=== PATIENT | male | born 1985 | race Caucasian/White ===

== ENCOUNTER 2024-02-20 08:01 | Emergency (ER) | payer OTHER, SELFPAY ==
[2024-02-20 08:13] VITALS: BP 134/85; PULSE 76; RESP 18; TEMP 36.7; O2SAT 99
--- NOTE | 2024-02-20 08:21 | XR_ITS ---
WS: [id number] XR hip RT 2-3V wo/w pel* [id number] REASON FOR EXAM: hip pain FINDINGS: No fracture or focal bone lesion. Mild narrowing of the posterior inferior and superior anterior joint space with mild subchondral scle rosis and osteophytosis of the acetabulum. No significant abnormality of the femoral head or neck. XR/XR hip RT 2-3V wo/w pel* [id number] IMPRESSION: No acute abnormality. Mild osteoarthritis.
--- NOTE | 2024-02-20 08:24 | W.ED.EXTPRO ---
HPI - Extremity Problem General: Chief complaint: Extremity Problem,Nontraumatic Stated complaint: Right hip pain to groin Time Seen by Provider: 02/20/24 08:21 History of Present Illness: 39-year-old male presents emergency room with complaining of right hip pain into the groin. Goes around his from the buttock into the groin and down the lateral part of his thigh on the right leg. He said problems like this in the past is worse when he is ambulating he is down here from [facility] visiting family and he has been out [place] walking in the [place] sitting a lot and deer stand. He has no difficulty with bowel or bladder function. No direct recent trauma he does have a service related injury with some compression fractures after being exposed to an IUD while he was serving in the [employer]. This did not require surgery. Associated symptoms: Deny chest pain, fever(s) or rash Related Data Home Medications Medication Instructions Recorded Confirmed naproxen sodium 220 mg tablet 220 mg PO DAILY PRN Pain 02/20/24 02/20/24 (Yahaira) Previous Rx's Medication Instructions Recorded diclofenac sodium 75 mg 75 mg PO Q12H PRN pain #20 tabs 02/20/24 tablet,delayed release hydrocodone 5 mg-acetaminophen 325 1 tab PO Q6H PRN pain #15 tabs 02/20/24 mg tablet prednisone 20 mg tablet 20 mg PO TID #15 tabs 02/20/24 tizanidine 4 mg tablet 4 mg PO Q6H PRN muscle spasticity 02/20/24 #20 tabs Allergies Allergy/AdvReac Type Severity Reaction Status Date / Time No Known Allergies Allergy Verified 02/20/24 08:17 Review of Systems Const: Denies: fever(s) or chills Card: Denies: chest pain Resp: Denies: dyspnea GI: Denies: abdominal pain : Denies: dysuria, urinary frequency or urinary urgency Musc: Reports: back pain; Denies: neck pain Skin/Breast: Denies: rash Physical Exam Const: COMMON NORMALS: no acute distress GENERAL APPEARANCE: cooperative and comfortable ORIENTATION/CONSCIOUSNESS: Yes awake, Yes oriented to person, Yes oriented to place and Yes oriented to time HENMT: COMMON NORMALS: normocephalic, atraumatic and hearing grossly normal bilaterally HEAD & SCALP: normocephalic and atraumatic Resp: COMMON NORMALS: normal respiratory effort, No retractions, No use of accessory muscles and clear to auscultation bilaterally AUSCULTATION: clear to auscultation bilaterally Cardio: COMMON NORMALS: regular rate, regular rhythm and No murmurs present (Cardio) RATE: regular rate RHYTHM: regular rhythm GI: COMMON NORMALS: Soft to palpation and No hepatosplenomegaly present AUSCULTATION: Yes normoactive bowel sounds PALPATION: Yes Soft to palpation, No Tenderness to palpation present (GI), No Guarding due to palpation present (GI) and Yes No hepatosplenomegaly present Extremity: COMMON NORMALS: normal to inspection, capillary refill normal, no clubbing, cyanosis or edema, no calf tenderness and no pedal edema Neuro: SENSORIUM/ORIENTATION: Yes oriented to person, Yes oriented to place and Yes oriented to time OTHER: Deep tendon reflexes +24 in the patellar tendon on the left and the right straight leg raising on the left is somewhat positive for pain radiating to the thigh more severe pain with attempts at straight leg raising with pain radiating from the buttock to the thigh. Sensation intact vascular intact. Dorsum plantarflexion 5/5 at feet. Skin: COMMON NORMALS: no rashes or lesions noted GENERAL SKIN EXAM: no rashes or lesions noted Course Vital Signs: Vital signs: Vital Signs Temperature 98.1 F 02/20/24 08:13 Pulse Rate 74 02/20/24 11:19 Respiratory Rate 18 02/20/24 08:13 Blood Pressure 130/97 02/20/24 11:19 Pulse Oximetry 94 02/20/24 11:19 Oxygen Delivery Me thod Room Air 02/20/24 08:54 MDM - Extremity (Nontraumatic) Medical Decision Making No functional deficits at this time no evidence of severe impingement on exam or on the imaging. Reviewed with the patient. Will discharge him home on hydrocodone diclofenac steroid taper to begin tomorrow muscle relaxer as needed recommend he follow-up with his primary care doctor where he lives if this persist they may need to do advanced imaging or consider other treatment options such as physical therapy or injections. Medical Records I reviewed the patient's medical records. Lab Data I reviewed the patient's lab results. 02/20/24 08:28 02/20/24 08:28 Radiology Impressions Hip/Pelvis X-Ray 02/20/24 08:21 IMPRESSION: No acute abnormality. Mild osteoarthritis. Lumbar Spine CT 02/20/24 08:40 IMPRESSION: Lumbar spondylosis as above Laboratory Results WBC 7.64 10^3/uL (3.29-11.43) 02/20/24 08: RBC 5.32 10^6/uL (3.85-5.65) 02/20/24 08:28 Hgb 14.80 g/dL (11.27-16.99) 02/20/24 08: Hct 45.6 % (37-53) 02/20/24 08: MCV 85.7 fl (82-101) 02/20/24 08: MCH 27.8 pg (27-33) 02/20/24 08: MCHC 32.5 g/dL (30-55) 02/20/24 08: RDW 11.8 % (12.1-15.1) L 02/20/24 08: Plt Count 238 10^3/cmm (157-399) 02/20/24 08: MPV 10.8 fL (7.4-10.4) H 02/20/24 08:28 Neut % (Auto) 58.1 % 02/20/24 08:28 Lymph % (Auto) 29.3 % 02/20/24 08: [place] % (Auto) 9.2 % 02/20/24 08: Eos % (Auto) 2.4 % 02/20/24 08: Baso % (Auto) 0.5 % 02/20/24 08:28 Neut # (Auto) 4.44 10^3/uL (1.8-7.7) 02/20/24 08: Lymph # (Auto) 2.2 10^3/uL (0.8-4.8) 02/20/24 08:28 [place] # (Auto) 0.7 10^3/uL (0.2-0.9) 02/20/24 08: Eos # (Auto) 0.2 10^3/uL (0.0-0.8) 02/20/24 08: Baso # (Auto) 0.0 10^3/uL (0.0-0.1) 02/20/24 08:28 Nucleated RBC % (auto) 0 % 02/20/24 08:28 Nucleated RBCs # 0.0 /100WBC 02/20/24 08:28 Sodium 139 mmol/L (136-145) 02/20/24 08:28 Potassium 4.4 mmol/L (3.5-5.1) 02/20/24 08:28 Chloride 102 mmol/L (98-107) 02/20/24 08:28 Carbon Dioxide 26 mmol/L (22-29) 02/20/24 08:28 Anion Gap 15.4 (5-19) 02/20/24 08:28 BUN 11 mg/dL (6-20) 02/20/24 08:28 Creatinine 0.8 mg/dL (0.7-1.2) 02/20/24 08:28 GFR Calculation 107.6 mL/min (90-130) 02/20/24 08:28 Glucose 96 mg/dL (65-115) 02/20/24 08:28 Calculated Osmolality 287 mOsm/kg (285-295) 02/20/24 08:28 Calcium 8.7 mg/dL (8.5-10.5) 02/20/24 08:28 Total Bilirubin 0.8 mg/dL (0.15-1.2) 02/20/24 08:28 AST 17 U/L (0-40) 02/20/24 08:28 ALT 19 U/L (0-41) 02/20/24 08:28 Alkaline Phosphatase 109 U/L (40-130) 02/20/24 08:28 Total Protein 6.9 g/dL (6.6-8.7) 02/20/24 08:28 Albumin 4.2 g/dL (3.5-5.2) 02/20/24 08:28 Globulin 2.7 g/dL (1.3-4.6) 02/20/24 08:28 Urine Color Yellow (Yellow) 02/20/24 10:10 Urine Appearance Cloudy (CLEAR) A 02/20/24 10:10 Urine pH 6.5 (5-7) 02/20/24 10:10 Ur Specific [place] 1.018 (1.005-1.030) 02/20/24 10:10 Urine Protein Negative (Negative) 02/20/24 10:10 Urine Glucose (UA) Negative (Normal) 02/20/24 10:10 Urine Ketones Negative (Negative) 02/20/24 10:10 Urine Blood Negative (Negative) 02/20/24 10:10 Urine Nitrate Negative (Negative) 02/20/24 10:10 Urine Bilirubin Negative (Negative) 02/20/24 10:10 Urine Urobilinogen 0.2 mg/dL (Negative) 02/20/24 10:10 Ur Leukocyte Esterase Negative (Negative) 02/20/24 10:10 Urine RBC 0-2 /hpf (0-2) 02/20/24 10:10 Urine WBC 0-5 /hpf (0-5) 02/20/24 10:10 Ur Squamous Epith Cells 0-5 /hpf (0-5) 02/20/24 10:10 Amorphous Sediment Not Reportable 02/20/24 10:10 Urine Bacteria None seen /hpf (NONE) 02/20/24 10:10 Hyaline Casts 2.05 /lpf 02/20/24 10:10 All radiology interpretation(s) finalized by discharge Discharge Plan Discharge Patient Disposition: Home Clinical Impression: Lumbar back pain with radiculopathy affecting right lower extremity Condition: Stable Prescriptions: New tizanidine 4 mg tablet 4 mg PO Q6H PRN (Reason: muscle spasticity) Qty: 20 0RF Rx Instructions: do not exceed 3 doses per 24 hrs prednisone 20 mg tablet 20 mg PO TID Qty: 15 0RF Rx Instructions: 1 p.o. 3 times daily x3 days, 1 p.o. twice daily x2 days, 1 p.o. daily x2 days diclofenac sodium 75 mg tablet,delayed release (DR/EC) 75 mg PO Q12H PRN (Reason: pain) Qty: 20 0RF hydrocodone-acetaminophen 5-325 mg tablet 1 tab PO Q6H PRN (Reason: pain) Qty: 15 0RF No Action naproxen sodium [Aleve] 220 mg Tablet 220 mg PO DAILY PRN (Reason: Pain) Discharge Orders: Discharge ED (Routine); Ordered 02/20/24 Ordered By: Nimesh Herrera Discharge Diet: Usual diet Discharge Activity: Resume usual activity Patient Instructions: Opioid Safety, Pain Management Activity Restrictions/Additional Instructions: Thank you for choosing [facility] for your healthcare needs today. It is very important that you follow up as instructed or that you return to the Emergency Department should you have concerns or if your condition changes or worsens in any way. You are seen today for back pain with radicular symptoms (pain into your leg. CT shows old compression fractures which with your previously aware of there is also changes to your spine likely due to activity. There is hypertrophy of the foraminal stenosis and spondylolysis. There is no sign of any cauda equina. Recommend a steroid taper anti-inflammatory tizanidine to use as needed. You were given steroids here begin the steroid taper tomorrow. Finally we will give you hydrocodone to use as needed. You can participate in activities as you feel able. Would recommend that you follow-up with your physician within the next 10 to 14 days sooner if the symptoms worsen or change. Coding Level of Care Code ED Track Maintainer for Janes Nair
--- NOTE | 2024-02-20 08:40 | CTR_ITS ---
PROCEDURE INFORMATION: Exam: CT Lumbar Spine Without Contrast Exam date and time: 02/20/2024 10:04 AM Age: 39 years old Clinical indication: Low back pain TECHNIQUE: Imaging protocol: Computed tomography of the lumbar spine without contrast. Radiation optimization: All CT scans at this facility use at least one of these dose optimization techniques: automated exposure control; mA and/or kV adjustment per patient size (includes targeted exams where dose is matched to clinical indication); or iterative reconstruction. COMPARISON: CR XR hip RT 2-3V wo/w pel* [id number] 02/20/2024 8:24 AM RADIATION DOSE METRICS: Total DLP (mGy-cm): 864.74 FINDINGS: Bones/joints: Suspected very subtle age-indeterminate L1 body compression deformity; this is likely related to a remote event, as there is no paraspinal or epidural hematoma to suggest recent fracture. Slight loss of disc height at L1-L2, with preservation of the remaining lumbar disc and vertebral body heights. At L4-L5 there is suggestion of a small posterior disc/osteophyte complex which likely causes mild indentation of the ventral thecal sac and contributes to [id number] bilateral foraminal narrowing. At L5-S1, and estimated [id number] posterior disc/osteophyte complex (containing an intradiscal calcification) causes estimated [id number] bilateral foraminal narrowing. Remaining lumbar neural foramina are grossly patent. No findings to suggest significant spinal canal stenosis. Soft tissues: Unremarkable. CT/CT lumbar spine wo con* [id number] IMPRESSION: Lumbar spondylosis as above
[2024-02-20 08:45] LABS: Basophils % 0.5 %; Eosinophils # 0.2 10^3/uL (0.0-0.8); Eosinophils % 2.4 %; Hematocrit 45.6 % (37-53); Lymphocytes # 2.2 10^3/uL (0.8-4.8); Lymphocytes % 29.3 %; Mean Corpuscular HGB Conc 32.5 g/dL (30-55); Mean Corpuscular Hemoglobin 27.8 pg (27-33); Mean Corpuscular Volume 85.7 fl (82-101); Mean Platelet Volume 10.8 fL (7.4-10.4); Monocytes # 0.7 10^3/uL (0.2-0.9); Monocytes % 9.2 %; Neutrophils # 4.44 10^3/uL (1.8-7.7); Neutrophils % 58.1 %; Nucleated Red Blood Cells % 0 %; Platelet Count 238 10^3/cmm (157-399); Red Blood Count 5.32 10^6/uL (3.85-5.65); Red Cell Distribution Width 11.8 % (12.1-15.1); White Blood Count 7.64 10^3/uL (3.29-11.43)
[2024-02-20] MEDS: dexamethasone 10 mg/mL INJ IM (08:47)
[2024-02-20] MEDS: orphenadrine 30 mg/mL Inj 2 mL 60 MG IM (08:47)
[2024-02-20] MEDS: ketorolac 30 mg/mL INJ IVP (08:48)
[2024-02-20 08:54] VITALS: BP 128/95; PULSE 78; O2SAT 98
[2024-02-20 09:02] LABS: Alanine Aminotransferase 19 U/L (0-41); Albumin Level 4.2 g/dL (3.5-5.2); Alkaline Phosphatase 109 U/L (40-130); Anion Gap 15.4 (5-19); Aspartate Amino Transferase 17 U/L (0-40); Blood Urea Nitrogen 11 mg/dL (6-20); Calcium 8.7 mg/dL (8.5-10.5); Carbon Dioxide 26 mmol/L (22-29); Chloride 102 mmol/L (98-107); Globulin 2.7 g/dL (1.3-4.6); Glomerular Filtration Rate 107.6 mL/min (90-130); Glucose 96 mg/dL (65-115); Osmolality Calculated 287 mOsm/kg (285-295); Potassium 4.4 mmol/L (3.5-5.1); Sodium 139 mmol/L (136-145); Total Bilirubin 0.8 mg/dL (0.15-1.2); Total Protein 6.9 g/dL (6.6-8.7)
[2024-02-20 10:34] LABS: Bilirubin Urine Negative (Negative); Blood Urine Negative (Negative); Glucose Urine UA Negative (Normal); Ketones Urine Negative (Negative); Leukocyte Esterase Urine Negative (Negative); Nitrate Urine Negative (Negative); Protein Urine Negative (Negative); Specific Gravity, Urine 1.018 (1.005-1.030); Urine Appearance Cloudy (CLEAR); Urine Color Yellow (Yellow); Urobilinogen Urine 0.2 mg/dL (Negative); pH Urine 6.5 (5-7)
[2024-02-20 10:39] LABS: Add Urine Microscopic? YES; Bacteria Urine None Seen /hpf; Hyaline Casts Urine 2.05 /lpf; RBC Urine 0-2 /hpf (0-2); Squamous Epithelial Cell Urine 0-5 /hpf (0-5); WBC Urine 0-5 /hpf (0-5)
[2024-02-20 11:19] VITALS: BP 130/97; PULSE 74; O2SAT 94
== END 2024-02-20 11:20 | disposition home or self-care (01) ==
PROVIDERS: Emergency Provider Family Medicine
DX: M54.16 Radiculopathy, lumbar region (principal); M54.50 Low back pain, unspecified
CPT/HCPCS: 72131; 73502; 80053; 81001; 85025; 96372; 96374; 99285; J1100; J1885; J2360